=== PATIENT | male | born 1990 | race Caucasian/White ===

== ENCOUNTER 2020-01-03 14:41 | Emergency (ER) | payer OTHER ==
[2020-01-03] MEDS ORDERED: TETRACAINE 0.5% HCL 0.6ML DROPPER.BOTTLE OD ONE (14:46)
[2020-01-03] MEDS ORDERED: TETRACAINE 0.5% OPHTH SOLN 2 ML BOTTLE ONE (14:48)
[2020-01-03] MEDS ORDERED: FLUORESCEIN NA 1 EA STRIP OD ONE (15:05)
[2020-01-03] MEDS ORDERED: FLUORESCEIN NA 1 EA STRIP ONE (15:05)
[2020-01-03 15:11] VITALS: BP 123/90; PULSE 84; TEMP 99.6; BMI 33.9
== END 2020-01-03 15:25 | disposition home or self-care (01) ==
LOC: FER 14:41
DX: S05.91XA Unspecified injury of right eye and orbit, initial encounter (principal)
CPT/HCPCS: 99283-25